=== PATIENT | female | born 1975 | race Caucasian/White ===

== ENCOUNTER → 2019-06-06 | Outpatient (CLI) | payer OTHER ==
--- NOTE | 2019-06-06 09:40 | XR ---
EXAM TYPE: LUMBAR SPINE X RAY SERIES COMPARISON: NONE HISTORY: Low back pain TECHNIQUE: 4 views are submitted. FINDINGS: Alignment is anatomic. The pedicles are intact. The transverse processes are intact. There is no s pondylolysis or spondylolisthesis. Degenerative disc disease at levels L3-S1 with facet arthropathy. Hypertrophic spurring. Surgical clips in the gallbladder fossa. Spina bifida occulta lumbosacral negrita ction. IMPRESSION: 1. Multilevel degenerative disc disease most marked findings at levels L4-5 and L5-S1.
== END | disposition home or self-care (01) ==
LOC: RADXRMAIN 09:10
PROVIDERS: ATTEND Family Medicine
DX: M51.36 Other intervertebral disc degeneration, lumbar region (principal); M51.37 Other intervertebral disc degeneration, lumbosacral region
CPT/HCPCS: 72110

== ENCOUNTER 2019-12-04 23:37 | Inpatient (IN) | payer MEDICAID, OTHER ==
[2019-12-05] MEDS ORDERED: ACTIVATED CHARCOAL 50 GM/240 ML BOTTLE PO STA (00:10)
[2019-12-05] MEDS ORDERED: SODIUM CHLORIDE 0.9% 1,000 ML IV STA (00:10)
--- NOTE | 2019-12-05 00:18 | ED ---
Overdose HPI - General Chief Complaint: Overdose Stated Complaint: overdose-tizanidine hcl Time Seen by Provider: 12/04/19 23:52 Source: patient, family Mode of arrival: ambulatory Limitations: no limitations - History of Present Illness Initial Comments: This patient is a 44-year-old woman who presents to be evaluated for an overdose. Patient states that she was feeling depressed over relationship problems. She states that she then took approximately 60 of the Zanaflex 4 mg tablets. This was nearly 5 hours ago. Patient denies coingestants. She states that she is not having any gastrointestinal symptoms. Denies chest pain, shortness of breath, palpitations. MD Complaint: intentional overdose -: hour(s) Intent: suicide attempt How Overdose Was Discovered: family/friend present at time Context: Intentional Overdose: relationship problems Treatments Prior to Arrival: none - Related Data Allergies Allergy/AdvReac Type Severity Reaction Status Date / Time No Known Allergies Allergy Verified 12/04/19 23:49 Review of Systems ROS Statement: Those systems with pertinent positive or pertinent negative responses have been documented in the HPI. ROS Other: All systems not noted in ROS Statement are negative. Constitutional: Denies: fever Respiratory: Denies: cough, dyspnea Cardiovascular: Denies: chest pain, palpitations, edema Gastrointestinal: Denies: abdominal pain, nausea, vomiting Genitourinary: Denies: dysuria Musculoskeletal: Denies: back pain Skin: Denies: rash Neurological: Denies: headache, weakness, numbness Psychiatric: Reports: depression, suicidal thoughts. Denies: auditory hallucinations, visual hallucinations, homicidal thoughts Past Medical History Past Medical History: Hyperlipidemia, Thyroid Disorder Additional Past Medical History / Comment(s): back problems History of Any Multi-Drug Resistant Organisms: None Reported Past Surgical History: Section Past Psychological History: Anxiety, Depression Smoking Status: Current every day smoker Past Alcohol Use History: None Reported Past Drug Use History: Marijuana General Exam Limitations: no limitations General appearance: alert, in no apparent distress Head exam: Present: atraumatic, normocephalic Eye exam: Present: normal appearance. Absent: scleral icterus, conjunctival injection ENT exam: Present: normal oropharynx Respiratory exam: Present: normal lung sounds bilaterally. Absent: respiratory distress, wheezes, rales, rhonchi, stridor Cardiovascular Exam: Present: regular rate, normal rhythm, normal heart sounds. Absent: systolic murmur, diastolic murmur, rubs, gallop GI/Abdominal exam: Present: soft. Absent: distended, tenderness, guarding, rebound, rigid, mass Extremities exam: Present: normal inspection, normal capillary refill. Absent: joint swelling, calf tenderness Back exam: Present: normal inspection Neurological exam: Present: alert Psychiatric exam: Present: depressed, suicidal ideation. Absent: agitated, anxious, flat affect, manic, homicidal ideation Skin exam: Present: warm, dry, intact, normal color. Absent: rash Course Vital Signs 12/04/19 12/05/19 12/05/19 23:45 00:36 04:19 Temperature 97.7 F 97.4 F L Pulse Rate 67 54 L 68 Respiratory 16 18 18 Rate Blood Pressure 120/75 108/65 117/59 O2 Sat by Pulse 99 97 97 Oximetry Medical Decision Making - Medical Decision Making Patient's 44-year-old woman with Zanaflex overdose. Patient is medically cleared, seen by EPS, and will be admitted for further psychiatric care. - Lab Data Result diagrams: 12/05/19 00:21 12/05/19 00:21 Lab Results 12/05/19 12/05/19 12/05/19 Range/Units 00:21 00:21 00:35 WBC 14.5 H (3.8-10.6) k/uL RBC 3.93 (3.80-5.40) m/uL Hgb 12.9 (11.4-16.0) gm/dL Hct 38.3 (34.0-46.0) % MCV 97.6 (80.0-100.0) fL MCH 32.9 (25.0-35.0) pg MCHC 33.7 (31.0-37.0) g/dL RDW 12.7 (11.5-15.5) % Plt Count 222 (150-450) k/uL Neutrophils % 77 % Lymphocytes % 17 % Monocytes % 3 % Eosinophils % 2 % Basophils % 0 % Neutrophils # 11.2 H (1.3-7.7) k/uL Lymphocytes # 2.4 (1.0-4.8) k/uL Monocytes # 0.5 (0-1.0) k/uL Eosinophils # 0.2 (0-0.7) k/uL Basophils # 0.0 (0-0.2) k/uL Sodium 140 (137-145) mmol/L Potassium 4.1 (3.5-5.1) mmol/L Chloride 109 H (98-107) mmol/L Carbon Dioxide 22 (22-30) mmol/L Anion Gap 9 mmol/L BUN 19 H (7-17) mg/dL Creatinine 0.98 (0.52-1.04) mg/dL Est GFR (CKD-EPI)AfAm 81 (>60 ml/min/1.73 sqM) Est GFR (CKD-EPI)NonAf 70 (>60 ml/min/1.73 sqM) Glucose 92 (74-99) mg/dL Calcium 10.1 (8.4-10.2) mg/dL Total Bilirubin 0.4 (0.2-1.3) mg/dL AST 64 H (14-36) U/L ALT 60 H (4-34) U/L Alkaline Phosphatase 77 (38-126) U/L Total Protein 7.1 (6.3-8.2) g/dL Albumin 4.4 (3.5-5.0) g/dL Urine HCG, Qual (Not Detectd) Salicylates <1.0 mg/dL Urine Opiates Screen Not Detected (NotDetected) Ur Oxycodone Screen Not Detected (NotDetected) Urine Methadone Screen Not Detected (NotDetected) Ur Propoxyphene Screen Not Detected (NotDetected) Acetaminophen <10.0 ug/mL Ur Barbiturates Screen Not Detected (NotDetected) U Tricyclic Antidepress Detected H (NotDetected) Ur Phencyclidine Scrn Not Detected (NotDetected) Ur Amphetamines Screen Not Detected (NotDetected) U Methamphetamines Scrn Not Detected (NotDetected) U Benzodiazepines Scrn Not Detected (NotDetected) Urine Cocaine Screen Not Detected (NotDetected) U Marijuana (THC) Screen Detected H (NotDetected) Serum Alcohol <10 mg/dL 12/05/19 Range/Units 00:35 WBC (3.8-10.6) k/uL RBC (3.80-5.40) m/uL Hgb (11.4-16.0) gm/dL Hct (34.0-46.0) % MCV (80.0-100.0) fL MCH (25.0-35.0) pg MCHC (31.0-37.0) g/dL RDW (11.5-15.5) % Plt Count (150-450) k/uL Neutrophils % % Lymphocytes % % Monocytes % % Eosinophils % % Basophils % % Neutrophils # (1.3-7.7) k/uL Lymphocytes # (1.0-4.8) k/uL Monocytes # (0-1.0) k/uL Eosinophils # (0-0.7) k/uL Basophils # (0-0.2) k/uL Sodium (137-145) mmol/L Potassium (3.5-5.1) mmol/L Chloride (98-107) mmol/L Carbon Dioxide (22-30) mmol/L Anion Gap mmol/L BUN (7-17) mg/dL Creatinine (0.52-1.04) mg/dL Est GFR (CKD-EPI)AfAm (>60 ml/min/1.73 sqM) Est GFR (CKD-EPI)NonAf (>60 ml/min/1.73 sqM) Glucose (74-99) mg/dL Calcium (8.4-10.2) mg/dL Total Bilirubin (0.2-1.3) mg/dL AST (14-36) U/L ALT (4-34) U/L Alkaline Phosphatase (38-126) U/L Total Protein (6.3-8.2) g/dL Albumin (3.5-5.0) g/dL Urine HCG, Qual Not Detected (Not Detectd) Salicylates mg/dL Urine Opiates Screen (NotDetected) Ur Oxycodone Screen (NotDetected) Urine Methadone Screen (NotDetected) Ur Propoxyphene Screen (NotDetected) Acetaminophen ug/mL Ur Barbiturates Screen (NotDetected) U Tricyclic Antidepress (NotDetected) Ur Phencyclidine Scrn (NotDetected) Ur Amphetamines Screen (NotDetected) U Methamphetamines Scrn (NotDetected) U Benzodiazepines Scrn (NotDetected) Urine Cocaine Screen (NotDetected) U Marijuana (THC) Screen (NotDetected) Serum Alcohol mg/dL - EKG Data -: EKG Interpreted by Me EKG shows normal: sinus rhythm, axis (Normal), intervals (Normal), QRS complexes (Normal), ST-T waves (Normal) Rate: bradycardia (Rate 41 bpm) Disposition Clinical Impression: Overdose, Mood disorder Disposition: ADMITTED IP TO THIS HOSP Condition: Fair Is patient prescribed a controlled substance at d/c from ED?: No
[2019-12-05 00:53] LABS: Basophils % (A) 0 %; Eosinophils # (A) 0.2 k/uL (0-0.7); Eosinophils % (A) 2 %; HCT 38.3 % (34.0-46.0); HGB 12.9 gm/dL (11.4-16.0); Lymphocytes # (A) 2.4 k/uL (1.0-4.8); Lymphocytes % (A) 17 %; MCH 32.9 pg (25.0-35.0); MCHC 33.7 g/dL (31.0-37.0); MCV 97.6 fL (80.0-100.0); Monocytes # (A) 0.5 k/uL (0-1.0); Monocytes % (A) 3 %; Neutrophils # (A) 11.2 k/uL (1.3-7.7); Neutrophils % (A) 77 %; Platelet Count 222 k/uL (150-450); RBC 3.93 m/uL (3.80-5.40); RDW 12.7 % (11.5-15.5); WBC 14.5 k/uL (3.8-10.6)
[2019-12-05 01:05] LABS: ALT 60 U/L (4-34); AST 64 U/L (14-36); Acetaminophen <10.0 ug/mL; African American GFR (CKD) 81 (>60 ml/min/1.73 sqM); Albumin 4.4 g/dL (3.5-5.0); Alcohol <10 mg/dL; Alkaline Phosphatase 77 U/L (38-126); Anion Gap 9 mmol/L; Blood Urea Nitrogen 19 mg/dL (7-17); Calcium 10.1 mg/dL (8.4-10.2); Carbon Dioxide 22 mmol/L (22-30); Chloride 109 mmol/L (98-107); Glucose 92 mg/dL (74-99); Non-African American GFR(CKD) 70 (>60 ml/min/1.73 sqM); Potassium 4.1 mmol/L (3.5-5.1); Salicylate <1.0 mg/dL; Sodium 140 mmol/L (137-145); Total Bilirubin 0.4 mg/dL (0.2-1.3); Total Protein 7.1 g/dL (6.3-8.2)
[2019-12-05 01:52] LABS: Amphetamine Screen,Urine Not Detected (NotDetected); Barbiturate Screen,Urine Not Detected (NotDetected); Benzodiazepines Screen,Urine Not Detected (NotDetected); Cocaine Screen,Urine Not Detected (NotDetected); Methadone Screen, Urine Not Detected (NotDetected); Opiate Screen,Urine Not Detected (NotDetected); Oxycodone Screen, Urine Not Detected (NotDetected); Phencyclidine Screen,Urine Not Detected (NotDetected); Tricyclic Antidepressant,Urine Detected (NotDetected); Urn Cannabinoid Scrn Detected (NotDetected)
[2019-12-05] MEDS ORDERED: clonazePAM 0.5 MG TAB PO PRN (06:38)
[2019-12-05] MEDS ORDERED: ACETAMINOPHEN TAB 325 MG TAB PO PRN (06:38)
[2019-12-05] MEDS ORDERED: MAGNESIUM HYDROXIDE 2,400 MG/10 ML CUP PO PRN (06:38)
[2019-12-05] MEDS ORDERED: MAG HYDROX/AL HYDROX/SIMETH 30 ML CUP PO PRN (06:38)
[2019-12-05] MEDS ORDERED: OXYBUTYNIN CHLORIDE 5 MG TAB PO PRN (06:50)
[2019-12-05] MEDS: MELOXICAM 7.5 MG TAB PO SCH (09:10)
[2019-12-05] MEDS: NICOTINE 14MG/24HR PATCH TRANSDERM SCH (09:10)
[2019-12-05] MEDS: FLUoxetine HCL 20 MG CAP PO SCH (09:11)
[2019-12-05] MEDS: ATORVASTATIN 20 MG TAB PO SCH (09:11)
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
--- NOTE | 2019-12-05 17:42 | P.MDCNMH ---
History of Present Illness Chief Complaint: Medical management, no acute complaints This is a 44-year-old female with history of depression who was admitted to mental health unit after attempted suicide with overdose on Zanaflex. Per patient and the chart patient took about 60 tablets of Zanaflex yesterday. She arrived to emergency department later that evening. She did not have any alteration in mental status or any significant cardiovascular manifestations. Her vital signs were stable. She was evaluated in the emergency department. She was treated with supportive care and eventually transferred to mental health unit. She currently has no symptoms. She is awake alert and orientated. She does not have any lightheadedness dizziness headache vision changes chest pain abdominal pain nausea vomiting diarrhea or any other discomfort. Blood work on admission was significant for AST of 66 and ALT of 60. Normal bilirubin and alk phos and normal rest of the blood work. EKG showed mild sinus tachycardia with normal QT and QRS. Patient otherwise denies any other medical problems or takes any other medications except for her psychiatric medications. She denies any history of family history of liver problems diabetes or cardiovascular disease. She used to drink but stopped drinking 3 years ago. Patient denies taking any Tylenol or any medications that can potential tick contained Tylenol. Tylenol level emergency department was negative Review of Systems Review of system was performed and is negative except mentioned in HPI Past Medical History Past Medical History: Hyperlipidemia, Thyroid Disorder Additional Past Medical History / Comment(s): back problems History of Any Multi-Drug Resistant Organisms: None Reported Past Surgical History: Section Past Psychological History: Anxiety, Depression Smoking Status: Current every day smoker Past Alcohol Use History: None Reported Past Drug Use History: Marijuana Medications and Allergies Home Medications Medication Instructions Recorded Confirmed Type Acetaminophen Tab [Tylenol Tab] 1,000 mg PO Q12H PRN 12/05/19 12/05/19 History Atorvastatin [Lipitor] 20 mg PO DAILY 12/05/19 12/05/19 History Cyclobenzaprine HCl 10 mg PO BID 12/05/19 12/05/19 History Ergocalciferol [Vitamin D2] 50,000 unit PO Q7D 12/05/19 12/05/19 History FLUoxetine HCL [PROzac] 20 mg PO DAILY 12/05/19 12/05/19 History Levothyroxine Sodium [Synthroid] 88 mcg PO DAILY 12/05/19 12/05/19 History Meloxicam 15 mg PO DAILY 12/05/19 12/05/19 History Nicotine 21Mg/24Hr Patch [Habitrol] 1 patch TRANSDERM DAILY 12/05/19 12/05/19 History Oxybutynin Chloride [Ditropan] 10 mg PO BID 12/05/19 12/05/19 History QUEtiapine [SEROquel] 100 mg PO HS 12/05/19 12/05/19 History clonazePAM [KlonoPIN] 0.5 mg PO BID PRN 12/05/19 12/05/19 History tiZANidine HCL [Zanaflex] 8 mg PO TID 12/05/19 12/05/19 History Allergies Allergy/AdvReac Type Severity Reaction Status Date / Time No Known Allergies Allergy Verified 12/05/19 07:39 Physical Exam Vitals: Vital Signs Temp Pulse Pulse Resp BP BP Pulse Ox 12/05/19 07:20 97.9 F 68 16 128/72 98 12/05/19 07:06 79 18 125/78 99 12/05/19 06:31 97.9 F 68 16 128/72 98 12/05/19 04:19 97.4 F L 68 18 117/59 97 12/05/19 00:36 54 L 18 108/65 97 12/04/19 23:45 97.7 F 67 16 120/75 99 Intake and Output 12/05/19 12/05/19 12/05/19 06:59 14:59 22:59 Other: Weight 77.111 kg 81.391 kg Vital Signs: I have reviewed the vital signs. GENERAL: Well-nourished, Well-developed , no apparent distress, cooperative Eyes: PERRL, extraoculry movements intact, clear conjunctiva Head: : Atraumatic external nose and ears, oropharyngeal mucosa is moist without lesions or exudates Neck: Symmetric, trachea midline, No thyromegaly, no masses or neck vain pulsation, no neck rigidity CVS: +S1/S2, No murmurs or gallops. Peripheral pulses 2+ and equal in all extremities. RESP: Unlabored respiratory effort. Clear to auscultation bilaterally. Abdomen: Bowel sounds present in all 4 quadrants, Soft to palpation, Nontender/Nondistended, No hepatosplenomegaly, no hernias or masses, no CVA tnderness Musculoskeletal: Extremities w/o deformity, No cyanosis or clubbing, no joint swelling Skin: Warm, Dry. 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, motor strenght 5/5 i upper and lower extremities, no clonus, patellar DTRs 2+ and sympetrical Psych: Awake, Alert, & Oriented (AAO) x3 Appropriate mood and affect Cranial Nerve Examination - Cranial Nerves Cranial Nerve I- Olfactory: Intact Cranial Nerve II- Optic: Intact Cranial Nerve III- Oculomotor: Intact Cranial Nerve IV- Trochlear: Intact Cranial Nerve V- Trigeminal: Intact Cranial Nerve - Abducens: Intact Cranial Nerve VII- Facial: Intact Cranial Nerve VIII- Auditory: Intact Cranial Nerve IX- Glossopharyngeal: Intact Cranial Nerve X- Vagus: Intact Cranial Nerve XI- Accessory: Intact Cranial Nerve XII- Hypoglossal: Intact Results CBC & Chem 7: 12/05/19 00:21 12/05/19 00:21 Labs: Abnormal Lab Results - Last 24 Hours (Table) 12/05/19 12/05/19 12/05/19 Range/Units 00:21 00:21 00:35 WBC 14.5 H (3.8-10.6) k/uL Neutrophils # 11.2 H (1.3-7.7) k/uL Chloride 109 H (98-107) mmol/L BUN 19 H (7-17) mg/dL AST 64 H (14-36) U/L ALT 60 H (4-34) U/L U Tricyclic Antidepress Detected H (NotDetected) U Marijuana (THC) Screen Detected H (NotDetected) Assessment and Plan Plan: 44-year-old female with SoloSite attempt with Zanaflex and major depression being evaluated by our service for medical management. She does not have any active symptoms. Regarding her elevated liver enzymes we will order repeat follow-up of CMP in the morning. Check viral hepatitis studies and ultrasound of the liver. Tylen ol level was undetectable in emergency department. Patient denies any Tylenol- containing products medications at home or taking any of those. Zanaflex can cause hepatotoxicity which is typically mild but we will need to monitor this and a sure that liver enzymes are stable.
[2019-12-05] MEDS ORDERED: QUEtiapine 100 MG TAB PO SCH (21:00)
[2019-12-05] MEDS: QUEtiapine 100 MG TAB PO SCH (21:17)
[2019-12-06 07:26] LABS: Albumin 4.5 g/dL (3.5-5.0); Bilirubin, Delta 0.3 mg/dL (0.0-0.2); Bilirubin,Unconjugated 0.2 mg/dL (0.0-1.1); Calcium 9.8 mg/dL (8.4-10.2); Potassium 4.2 mmol/L (3.5-5.1); Total Bilirubin 0.5 mg/dL (0.2-1.3); Total Protein 7.3 g/dL (6.3-8.2)
[2019-12-06] MEDS: MELOXICAM 7.5 MG TAB PO SCH (08:50)
[2019-12-06] MEDS: ATORVASTATIN 20 MG TAB PO SCH (08:50)
[2019-12-06] MEDS: NICOTINE 14MG/24HR PATCH TRANSDERM SCH (08:50)
[2019-12-06] MEDS: FLUoxetine HCL 20 MG CAP PO SCH (08:50)
[2019-12-06] MEDS ORDERED: LEVOTHYROXINE 88 MCG TAB PO SCH (09:00)
[2019-12-06 09:23] LABS: T4, Free (Free Thyroxine) 0.77 ng/dL (0.78-2.19)
[2019-12-06] MEDS: clonazePAM 0.5 MG TAB PO PRN (09:35)
[2019-12-06 12:03] LABS: Hepatitis B Core IgM Non-Reactive (Non-Reactive); Hepatitis B Surface AB- Quant 385.4 mIU/mL; Hepatitis B Surface Antibody Reactive (Non-Reactive); Hepatitis B Surface Antigen Non-Reactive (Non-Reactive); Hepatitis C IgG Antibody Non-Reactive (Non-Reactive)
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
[2019-12-06 12:52] LABS: Hemoglobin A1C 5.2 % (4.0-6.0)
--- NOTE | 2019-12-06 15:09 | P.PN ---
Subjective Lab results were reviewed. No changes in patient's clinical status. Objective - Vital Signs Vital signs: Vital Signs Temp 98.0 F 12/06/19 06:07 Pulse 64 12/06/19 06:07 Resp 14 12/06/19 06:07 BP 117/54 12/06/19 06:07 Pulse Ox 98 12/05/19 07:20 Intake & Output 12/05/19 12/06/19 12/06/19 18:59 06:59 18:59 Weight 81.391 kg - Labs CBC & Chem 7: 12/05/19 00:21 12/06/19 06:51 Labs: Abnormal Lab Results - Last 24 Hours (Table) 12/06/19 Range/Units 06:51 Chloride 112 H (98-107) mmol/L Delta Bilirubin 0.3 H (0.0-0.2) mg/dL AST 53 H (14-36) U/L ALT 56 H (4-34) U/L Triglycerides 418 H (<150) mg/dL Cholesterol 248 H (<200) mg/dL TSH 18.500 H (0.465-4.680) mIU/L Free T4 0.77 L (0.78-2.19) ng/dL Assessment and Plan Assessment: 1. Elevated liver enzymes normal bilirubin and ALP enzymes trending down viral serology pending 2. Hypothyroidism TSH 18 appears euthyroid clinically pt states to be adherent to Levothyroxine and takes it on empty stomach in am avay from any other meds. She does not take any OTC. Pt has no CVS dieases and based on her body weight should be on higer dose. Will increase to 112 mcg/day counseled to take in am on empty stomach, 1-2 hrs before breakfast or other medications close follow up needed with repeat TSH in 4-6 weeks 3. hypertrygliceridemia with hypercholoesterolemia probable component of Hypothyroidism rule out other causes she has been on Atorvastatin may continue that diet, exercise, alcohol avoidance advised check A1c repeat labs in 6 weeks may add fibrate if needed if no improvemnt in few weeks, but would like to get control over her hypothyroidsm first
[2019-12-06] MEDS: QUEtiapine 100 MG TAB PO SCH (20:10)
[2019-12-07] MEDS: LEVOTHYROXINE 112 MCG TAB PO SCH (05:35)
[2019-12-07] MEDS: ATORVASTATIN 20 MG TAB PO SCH (09:08)
[2019-12-07] MEDS: NICOTINE 14MG/24HR PATCH TRANSDERM SCH (09:08)
[2019-12-07] MEDS: MELOXICAM 7.5 MG TAB PO SCH (09:08)
[2019-12-07] MEDS: FLUoxetine HCL 20 MG CAP PO SCH (09:09)
[2019-12-07] MEDS: clonazePAM 0.5 MG TAB PO PRN (09:10)
[2019-12-07 09:21] LABS: Albumin 4.8 g/dL (3.5-5.0); Calcium 9.9 mg/dL (8.4-10.2); Potassium 4.6 mmol/L (3.5-5.1); Total Bilirubin 0.6 mg/dL (0.2-1.3); Total Protein 7.5 g/dL (6.3-8.2)
--- NOTE | 2019-12-07 12:13 | P.PN ---
Subjective Progress Note Date: 12/07/19 The patient seen in the chart was reviewed. The case was discussed with the staff and team meeting. The patient reports feeling a little better today. She complained of poor sleep and last night but attributes it to the disturbance on the unit. The patient reports fair appetite. She reports improvement in crying spells and denies any panic attacks. The patient denies any nightmares. The patient reports that she has been communicating with her boyfriend and things have been better between the 2 of them. She is looking forward to the family meeting later today this afternoon. The patient denies any auditory or visual hallucinations. She denies any suicidal or homicidal ideations at this time. The patient has been tolerating medications without any side effects. Objective - Vital Signs Vital signs: Vital Signs Temp 98.7 F 12/07/19 06:00 Pulse 72 12/07/19 06:00 Resp 18 12/07/19 06:00 BP 124/55 12/07/19 06:00 Pulse Ox 98 12/05/19 07:20 - Exam Objective: Vitals has been reviewed. Mental status examination; Appearance: The patient appears stated age, adequately groomed and dressed, no specific features. Gait/posture: Normal gait, Normal arm swinging: No abnormal movements. Attitude and behavior: engaged, cooperative, eye contact. Motor activity: Normal psychomotor activity Speech: Normal rate, tone. Mood: Anxious, depressed. Affect: Constricted Thought form: goal-directed, linear, coherent. Thought content: Non-delusional, denies suicidal thoughts, but reports feeling hopeless, denies homicidal thoughts, denies intentions or plans. Perception: Denies any auditory or visual hallucinations Orientation: Patient patient was fully oriented to time place person and situation. Insight: Patient has fair insight about his psychiatric disorder. Judgment: Patient has fair judgment about his psychiatric treatment. - Labs CBC & Chem 7: 12/05/19 00:21 12/07/19 08:08 Labs: Abnormal Lab Results - Last 24 Hours (Table) 12/06/19 12/07/19 Range/Units 06:51 08:08 Chloride 111 H (98-107) mmol/L Carbon Dioxide 20 L (22-30) mmol/L Glucose 102 H (74-99) mg/dL AST 48 H (14-36) U/L ALT 54 H (4-34) U/L Hep Bs Antibody Reactive H (Non-Reactive) Assessment and Plan Assessment: IMPRESSIONS: Major Depressive disorder Cannabis abuse disorder Plan: PLAN: . Admit to the mental health unit. Continue on suicidal precautions 1:1 support and psychotherapy Continue Prozac 20 mg PO qd. Continue Seroquel 100 mg PO qhs and 25 mg PO tid PRN. Milieu therapy including PT, OT and GT. Adjust medications and monitor closely for the patient's symptoms getting worse and /or possible side effects on medications.
--- NOTE | 2019-12-07 17:44 | P.PN ---
Progress Note - Text Viral hepatitis serology reviewed. Most likely indicative of vaccination status. We have HBeAg and anti-HBe AB currently pending for full confirmation. Initial results reviewed with the patient. Liver enzymes continued to trend down. Avoid hepatotoxic medications. Recheck CMP a few days.
[2019-12-07] MEDS: QUEtiapine 100 MG TAB PO SCH (20:50)
[2019-12-08] MEDS: LEVOTHYROXINE 112 MCG TAB PO SCH (06:04)
[2019-12-08] MEDS: NICOTINE 14MG/24HR PATCH TRANSDERM SCH (09:04)
[2019-12-08] MEDS: ATORVASTATIN 20 MG TAB PO SCH (09:04)
[2019-12-08] MEDS: FLUoxetine HCL 20 MG CAP PO SCH (09:04)
[2019-12-08] MEDS: MELOXICAM 7.5 MG TAB PO SCH (09:05)
[2019-12-08] MEDS: clonazePAM 0.5 MG TAB PO PRN (09:07)
--- NOTE | 2019-12-08 09:55 | US ---
EXAMINATION TYPE: US liver DATE OF EXAM: 12/08/2019 COMPARISON: NONE CLINICAL HISTORY: elevated liver enzymes . Patient took 60 muscle relaxers and is in [facility]HU. EXAM MEASUREMENTS: Liver Length: 16.6 cm Gallbladder Wall: Surgically absent cm CBD: 0.4 cm Right Kidney: 10.1 x 4.6 x 3.8 cm Pancreas: No obvious masses Limited by bowel gas. Liver: Increased attenuation, heterogeneous texture overall Gallbladder: Surgically absent Evidence for sonographic Boyd's sign: No CBD: wnl Right Kidney: No hydronephrosis or masses seen IMPRESSION: 1. Increased echo pattern to the liver is nonspecific can be seen with hepatic steatosis, hepatitis o r diffuse hepatocellular disease correlate clinically. 2. Postcholecystectomy. 3. Markedly Limited assessment pancreas due to overlying bowel gas.
--- NOTE | 2019-12-08 10:48 | P.PN ---
Subjective Progress Note Date: 12/08/19 The patient seen in the chart was reviewed. The case was discussed with the staff and the team meeting. The patient continues to report feeling depressed and anxious. She remained focused on feeling guilty about cheating on her boyfriend. The patient reports fair sleep and appetite. She denies any crying spells or panic attacks. The patient denies any auditory or visual hallucinations. The patient denies any active suicidal or homicidal ideations at this time. The patient has been cooperative and compliant with treatment and denies any side effects on the medications but reports muscle contractions and lower extremity. Objective - Vital Signs Vital signs: Vital Signs Temp 98.2 F 12/08/19 06:07 Pulse 80 12/08/19 06:07 Resp 14 12/08/19 06:07 BP 108/52 12/08/19 06:07 Pulse Ox 98 12/05/19 07:20 - Exam Objective: Vitals has been reviewed. Mental status examination; Appearance: The patient appears stated age, adequately groomed and dressed, no specific features. Gait/posture: Normal gait, Normal arm swinging: No abnormal movements. Attitude and behavior: engaged, cooperative, eye contact. Motor activity: Normal psychomotor activity Speech: Normal rate, tone. Mood: Anxious, depressed. Affect: Constricted Thought form: goal-directed, linear, coherent. Thought content: Non-delusional, denies suicidal thoughts, but reports feeling hopeless, denies homicidal thoughts, denies intentions or plans. Perception: Denies any auditory or visual hallucinations Orientation: Patient patient was fully oriented to time place person and situation. Insight: Patient has fair insight about his psychiatric disorder. Judgment: Patient has fair judgment about his psychiatric treatment. - Labs CBC & Chem 7: 12/05/19 00:21 12/07/19 08:08 Assessment and Plan Assessment: IMPRESSIONS: Major Depressive disorder Cannabis abuse disorder Plan: PLAN: . Admit to the mental health unit. Continue on suicidal precautions 1:1 support and psychotherapy. Discussed side effects of the medications including possible dystonia from Seroquel. Discussed treatment options. Continue Prozac 20 mg PO qd. Continue Seroquel 100 mg PO qhs and 25 mg PO tid PRN. Start Cogentin 0.5 mg by mouth daily at bedtime. Discontinue Klonopin. Milieu therapy including PT, OT and GT. Adjust medications and monitor closely for the patient's symptoms getting worse and /or possible side effects on medications.
[2019-12-08 13:59] LABS: Hepatitis BE Antibody NEG (Negative)
[2019-12-08 14:00] LABS: Hepatitis BE Antigen NEG (Negative)
[2019-12-08] MEDS: QUEtiapine 25 MG TAB PO PRN (15:32)
[2019-12-08] MEDS: BENZTROPINE MESYLATE 0.5 MG TAB PO SCH (22:05)
[2019-12-08] MEDS: QUEtiapine 100 MG TAB PO SCH (22:05)
[2019-12-09] MEDS: LEVOTHYROXINE 112 MCG TAB PO SCH (06:45)
[2019-12-09] MEDS ORDERED: ERGOCALCIFEROL 50,000 UNIT CAP PO SCH (09:00)
[2019-12-09] MEDS: NICOTINE 14MG/24HR PATCH TRANSDERM SCH (09:29)
[2019-12-09] MEDS: ATORVASTATIN 20 MG TAB PO SCH (09:29)
[2019-12-09] MEDS: FLUoxetine HCL 20 MG CAP PO SCH (09:30)
[2019-12-09] MEDS: QUEtiapine 25 MG TAB PO PRN (09:31)
[2019-12-09] MEDS: MELOXICAM 7.5 MG TAB PO SCH (09:31)
--- NOTE | 2019-12-09 15:58 | P.PN ---
Progress Note - Text Progress Note Date: 12/09/19 Interval history: Patient is seen in [facility] today. She reports that her mood overall is doing better. She does describe her level of anxiety fluctuating, relays her Klonopin was discontinued yesterday and doesn't feel like the Seroquel when necessary works. She does describe that her mood is doing better, relay she had a support meeting with her boyfriend on . Mental status exam: She is alert and cooperative with the interview. Her speech is fluent, not rapid or pressured. Her thought processes are organized. Her mood is improved. She denies any current thoughts of self-harm. She does not show any agitation. She does not verbalize any thoughts of harm to others. Plan: Patient will be maintained on current psychotropic medication regimen. Continue to monitor her mood and level of anxiety. Continue to monitor her ongoing response to treatment and for any medication side effects.
[2019-12-09] MEDS: BENZTROPINE MESYLATE 0.5 MG TAB PO SCH (21:56)
[2019-12-09] MEDS: QUEtiapine 100 MG TAB PO SCH (21:56)
[2019-12-10] MEDS: LEVOTHYROXINE 112 MCG TAB PO SCH (06:26)
[2019-12-10] MEDS: ATORVASTATIN 20 MG TAB PO SCH (10:11)
[2019-12-10] MEDS: QUEtiapine 25 MG TAB PO PRN (10:11)
[2019-12-10] MEDS: FLUoxetine HCL 20 MG CAP PO SCH (10:11)
[2019-12-10] MEDS: NICOTINE 14MG/24HR PATCH TRANSDERM SCH (10:11)
[2019-12-10] MEDS: MELOXICAM 7.5 MG TAB PO SCH (10:12)
--- NOTE | 2019-12-10 15:03 | P.PN ---
Progress Note - Text Progress Note Date: 12/10/19 Interval history: [facility] [place] [facility]. She reports that the Cogentin did seem to give her some benefit at night but she wonders about an increased dose we talked about trialing at a twice a day dosing. We did discuss her liver ultrasound and discussed that we will have medical follow-up to further discuss results with her. She describes her mood overall is doing better. She doesn't feel like the Seroquel gives her benefit for anxiety. Mental status exam: She is alert and cooperative with the interview. Her speech is fluent, not rapid or pressured. Thought processes are organized. She describes her mood overall is doing better. She denies any thoughts of harm to self or others. She denies any hallucinations. She is not displaying any agitation. Plan: Patient will be maintained on current psychotropic medication regimen. Continue to monitor for any medication side effects and monitor her ongoing response to treatment. Will have medical follow-up regarding her liver ultrasound.
[2019-12-10] MEDS: BENZTROPINE MESYLATE 0.5 MG TAB PO SCH (22:01)
[2019-12-10] MEDS: QUEtiapine 100 MG TAB PO SCH (22:01)
[2019-12-11] MEDS: LEVOTHYROXINE 112 MCG TAB PO SCH (06:22)
[2019-12-11] MEDS: NICOTINE 14MG/24HR PATCH TRANSDERM SCH (09:31)
[2019-12-11] MEDS: MELOXICAM 7.5 MG TAB PO SCH (09:31)
[2019-12-11] MEDS: ATORVASTATIN 20 MG TAB PO SCH (09:31)
[2019-12-11] MEDS: FLUoxetine HCL 20 MG CAP PO SCH (09:32)
[2019-12-11] MEDS: BENZTROPINE MESYLATE 0.5 MG TAB PO SCH ×2 (09:32→22:49)
--- NOTE | 2019-12-11 13:18 | P.PN ---
Subjective Progress Note Date: 12/11/19 The patient seen in the chart was reviewed. The case was discussed with the staff and the team meeting. The patient reports feeling better today but reports feeling more anxious. The patient reports fair sleep and appetite. She denies any crying spells or panic attacks. The patient denies any auditory or visual hallucinations. The patient denies any active suicidal or homicidal ideations at this time. The patient has been cooperative and compliant with treatment and denies any side effects on the medications but reports muscle contractions and lower extremity. Objective - Vital Signs Vital signs: Vital Signs Temp 97.8 F 12/11/19 07:07 Pulse 70 12/11/19 07:07 Resp 17 12/11/19 07:07 BP 101/55 12/11/19 07:07 Pulse Ox 99 12/11/19 07:07 Intake & Output 12/10/19 12/11/19 12/11/19 18:59 06:59 18:59 Weight 79.5 kg - Exam Objective: Vitals has been reviewed. Mental status examination; Appearance: The patient appears stated age, adequately groomed and dressed, no specific features. Gait/posture: Normal gait, Normal arm swinging: No abnormal movements. Attitude and behavior: engaged, cooperative, eye contact. Motor activity: Normal psychomotor activity Speech: Normal rate, tone. Mood: Anxious, depressed. Affect: Constricted Thought form: goal-directed, linear, coherent. Thought content: Non-delusional, denies suicidal thoughts, but reports feeling hopeless, denies homicidal thoughts, denies intentions or plans. Perception: Denies any auditory or visual hallucinations Orientation: Patient patient was fully oriented to time place person and si tuation. Insight: Patient has fair insight about his psychiatric disorder. Judgment: Patient has fair judgment about his psychiatric treatment. - Labs CBC & Chem 7: 12/05/19 00:21 12/07/19 08:08 Assessment and Plan Assessment: IMPRESSIONS: Major Depressive disorder Cannabis abuse disorder Plan: PLAN: . Admit to the mental health unit. Continue on suicidal precautions 1:1 support and psychotherapy. Discussed side effects of the medications including possible dystonia from Seroquel. Discussed treatment options. Continue Prozac 20 mg PO qd. Continue Seroquel 100 mg PO qhs and 25 mg POmg by mouth daily at bedtime. Continue Cogentin 0.5 mg bid PRN.. Milieu therapy including PT, OT and GT. Adjust medications and monitor closely for the patient's symptoms getting worse and /or possible side effects on medications.
[2019-12-11] MEDS: QUEtiapine 25 MG TAB PO PRN (13:48)
[2019-12-11] MEDS: QUEtiapine 100 MG TAB PO SCH (22:49)
[2019-12-12] MEDS: LEVOTHYROXINE 112 MCG TAB PO SCH (06:39)
[2019-12-12] MEDS: NICOTINE 14MG/24HR PATCH TRANSDERM SCH (09:13)
[2019-12-12] MEDS: FLUoxetine HCL 20 MG CAP PO SCH (09:14)
[2019-12-12] MEDS: ATORVASTATIN 20 MG TAB PO SCH (09:14)
[2019-12-12] MEDS: MELOXICAM 7.5 MG TAB PO SCH (09:14)
[2019-12-12] MEDS: BENZTROPINE MESYLATE 0.5 MG TAB PO SCH ×2 (09:14→21:21)
--- NOTE | 2019-12-12 12:00 | P.PN ---
Subjective Progress Note Date: 12/12/19 The patient seen in the chart was reviewed. The case was discussed with the staff and the team meeting. The patient continues to report feeling anxious all the time. She is requesting Klonopin for the anxiety. The patient was ordered Seroquel but thinks that it does not work. The patient denies any auditory or visual hallucinations. She denies any active suicidal or homicidal ideations at this time. The patient has been cooperative and compliant with treatment and denies any side effects on the medications but reports muscle contractions and lower extremity. Objective - Vital Signs Vital signs: Vital Signs Temp 97.8 F 12/12/19 06:50 Pulse 77 12/12/19 06:50 Resp 15 12/12/19 06:50 BP 113/60 12/12/19 06:50 Pulse Ox 97 12/12/19 06:50 - Exam Objective: Vitals has been reviewed. Mental status examination; Appearance: The patient appears stated age, adequately groomed and dressed, no specific features. Gait/posture: Normal gait, Normal arm swinging: No abnormal movements. Attitude and behavior: engaged, cooperative, eye contact. Motor activity: Normal psychomotor activity Speech: Normal rate, tone. Mood: Anxious, depressed. Affect: Constricted Thought form: goal-directed, linear, coherent. Thought content: Non-delusional, denies suicidal thoughts, but reports feeling hopeless, denies homicidal thoughts, denies intentions or plans. Perception: Denies any auditory or visual hallucinations Orientation: Patient patient was fully oriented to time place person and situation. Insight: Patient has fair insight about his psychiatric disorder. Judgment: Patient has fair judgment about his psychiatric treatment. - Labs CBC & Chem 7: 12/05/19 00:21 12/07/19 08:08 Assessment and Plan Assessment: IMPRESSIONS: Major Depressive disorder Cannabis abuse disorder Plan: PLAN: . Admit to the mental health unit. Continue on suicidal precautions 1:1 support and psychotherapy. Discussed side effects of the medications including possible dystonia from Seroquel. Discussed treatment options. Continue Prozac 20 mg PO qd. Increase Seroquel 100 mg PO qhs and 25 mg POmg by mouth tid PRN. Start Neurontin 100 mg PO tid. Continue Cogentin 0.5 mg bid PRN.. Milieu therapy including PT, OT and GT. Adjust medications and monitor closely for the patient's symptoms getting worse and /or possible side effects on medications.
[2019-12-12] MEDS: GABAPENTIN 400 MG CAP PO SCH ×3 (14:40→21:21)
[2019-12-12] MEDS ORDERED: GABAPENTIN 100 MG CAP PO SCH (16:00)
[2019-12-12] MEDS: QUEtiapine 100 MG TAB PO SCH (21:21)
[2019-12-13] MEDS: LEVOTHYROXINE 112 MCG TAB PO SCH (06:20)
[2019-12-13 06:53] VITALS: BP 111/52; PULSE 79; RESP 18; TEMP 98.1
[2019-12-13] MEDS: NICOTINE 14MG/24HR PATCH TRANSDERM SCH (09:11)
[2019-12-13] MEDS: FLUoxetine HCL 20 MG CAP PO SCH (09:11)
[2019-12-13] MEDS: BENZTROPINE MESYLATE 0.5 MG TAB PO SCH (09:11)
[2019-12-13] MEDS: ATORVASTATIN 20 MG TAB PO SCH (09:11)
[2019-12-13] MEDS: GABAPENTIN 400 MG CAP PO SCH ×2 (09:11→13:04)
[2019-12-13] MEDS: MELOXICAM 7.5 MG TAB PO SCH (09:11)
--- NOTE | 2019-12-13 11:41 | P.PN ---
Subjective Progress Note Date: 12/13/19 Discharge Note: Patient was seen and chart was reviewed. Case discussed with staff. The patient reports doing better and denies any new problems at this time. [She] admits to fair energy and fair appetite. [She] claims that she slept better last night and does not remember having a nightmare. At this time patient denies any suicidal or homical ideations, intent or plan. Patient denies any auditory, visual hallucinations and denies any paranoia or delusions. Patient denies any side effects from the medications and has been compliant with meds. Objective - Vital Signs Vital signs: Vital Signs Temp 98.1 F 12/13/19 06:52 Pulse 79 12/13/19 06:52 Resp 18 12/13/19 06:52 BP 111/52 12/13/19 06:52 Pulse Ox 97 12/12/19 06:50 - Exam Mental Status Exam: General Appearance: Patient appears to be stated age is alert, directable. fair hygiene and grooming. Patient has improving eye contact. Behavior: Patient is seated without any agitated behavior. Appears to be less anxious Speech: Patient's speech is fluent and nonpressured. soft tone. Mood/Affect: Patient reports their mood/anxiety is mildly improving, affect is congruent Suicidality/Homicidality: Patient denies having any suicidal or homicidal ideation intent or plan. Perceptions: Patient denies any auditory or visual hallucinations. Though content/process: There is no evidence of any delusional thought content and thought process is linear and goal-directed. Memory and concentration: AOX3, grossly intact for the purposes of this session. Judgment and insight: mildly improving. - Labs CBC & Chem 7: 12/05/19 00:21 12/07/19 08:08 Assessment and Plan Assessment: IMPRESSIONS: Major Depressive disorder Cannabis abuse disorder Plan: Plan: -Patient continues to meet criteria for inpatient psychiatric admission for symptom stabilization and safety. Patient has signed adult voluntary form and medication consent and was placed in patient's chart. -Medications: Continue Neurontin 400 mg PO qid. Continue Prozac 20 mg PO qd Continue Seroquel 100 mg PO qhs. Continue Seroquel 25 mg PO tid PRN. -NRT -not needed as patient does not smoke -Discharge home today to follow-up as an outpatient.
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
== END 2019-12-13 13:21 | disposition home or self-care (01) | DRG 881 ==
LOC: EC 23:37 → 3MHU 12-05 06:30
PROVIDERS: ADMIT Psychiatry & Neurology Psychiatry; ATTEND Psychiatry & Neurology Psychiatry
DX: F32.9 Major depressive disorder, single episode, unspecified (principal); T42.8X2A Poisoning by antiparkinsonism drugs and other central muscle-tone depressants, intentional self-harm, initial encounter; E03.9 Hypothyroidism, unspecified; E78.5 Hyperlipidemia, unspecified; F12.19 Cannabis abuse with unspecified cannabis-induced disorder; F17.210 Nicotine dependence, cigarettes, uncomplicated; F41.0 Panic disorder [episodic paroxysmal anxiety]; Z91.410 Personal history of adult physical and sexual abuse; Z81.1 Family history of alcohol abuse and dependence; Z63.0 Problems in relationship with spouse or partner; R94.5 Abnormal results of liver function studies; Z79.899 Other long term (current) drug therapy
CPT/HCPCS: 36415; 76705; 80053; 80061; 80076; 80306; 80320; 80329; 81025; 82075; 83036; 83520; 84439; 84443; 85025; 86704; 86705; 86706; 86707; 86803; 87340; 87350; 93005; 96360; 99285

== ENCOUNTER 2024-07-25 18:58 | Emergency (ER) | payer OTHER ==
--- NOTE | 2024-07-25 19:16 | ED ---
General Adult HPI - General Stated complaint: [facility] drug test Time Seen by Provider: 07/25/24 19:15 Source: patient, RN notes reviewed - History of Present Illness Initial comments: 49-year-old female presents emergency department chief complaint for encounter for drug test. Patient states that she was "caught at work smoking her marijuana vape pen ". Patient was informed by her employer to report to the emergency department to leave a 10 panel drug test. No other acute complaints at this time. - Related Data Home Medications Medication Instructions Recorded Confirmed Atorvastatin [Lipitor] 20 mg PO DAILY 12/05/19 12/05/19 Cyclobenzaprine HCl 10 mg PO BID 12/05/19 12/05/19 Ergocalciferol [Vitamin D2] 50,000 unit PO Q7D 12/05/19 12/05/19 Levothyroxine Sodium [Synthroid] 88 mcg PO DAILY 12/05/19 12/05/19 QUEtiapine [SEROquel] 100 mg PO HS 12/05/19 12/05/19 oxyBUTYnin chloride [Ditropan] 10 mg PO BID 12/05/19 12/05/19 Previous Rx's Medication Instructions Recorded Benztropine Mesylate [Cogentin] 0.5 mg PO BID #60 tab 12/11/19 FLUoxetine HCL [PROzac] 20 mg PO DAILY #30 cap 12/11/19 Nicotine 14Mg/24Hr Patch [Habitrol] 1 patch TRANSDERM DAILY #14 patch 12/11/19 QUEtiapine [SEROquel] 25 mg PO TID PRN #90 tab 12/11/19 QUEtiapine [SEROquel] 100 mg PO HS #30 tab 12/11/19 Gabapentin [Neurontin] 400 mg PO QID 30 Days #120 cap 12/13/19 Allergies Allergy/AdvReac Type Severity Reaction Status Date / Time No Known Allergies Allergy Verified 07/25/24 19:18 Review of Systems ROS Statement: Those systems with pertinent positive or pertinent negative responses have been documented in the HPI. ROS Other: All systems not noted in ROS Statement are negative. Past Medical History Past Medical History: Hyperlipidemia, Thyroid Disorder Additional Past Medical History / Comment(s): back problems History of Any Multi-Drug Resistant Organisms: None Reported Past Surgical History: Section Past Psychological History: Anxiety, Depression Past Alcohol Use History: None Reported Past Drug Use History: Marijuana General Exam General appearance: alert, in no apparent distress Head exam: Present: atraumatic, normocephalic, normal inspection Eye exam: Present: normal appearance, PERRL, EOMI. Absent: scleral icterus, conjunctival injection, periorbital swelling ENT exam: Present: normal exam, mucous membranes moist Neck exam: Present: normal inspection. Absent: tenderness, meningismus, lymphadenopathy Respiratory exam: Present: normal lung sounds bilaterally, wheezes. Absent: respiratory distress, rales, rhonchi, stridor Cardiovascular Exam: Present: regular rate, normal rhythm, normal heart sounds. Absent: systolic murmur, diastolic murmur, rubs, gallop, clicks GI/Abdominal exam: Present: soft, normal bowel sounds. Absent: distended, tenderness, guarding, rebound, rigid Psychiatric exam: Present: normal affect, normal mood Skin exam: Present: warm, dry, intact, normal color. Absent: rash Course Vital Signs 07/25/24 19:16 Temperature 97.8 F Pulse Rate 74 Respiratory 18 Rate Blood Pressure 126/69 O2 Sat by Pulse 98 Oximetry Medical Decision Making - Medical Decision Making Was pt. sent in by a medical professional or institution (, PA, INTERNATIONAL FREIGHT FORWARDER, urgent care, hospital, or detention...) When possible be specific @ -Patient was sent in by her employer for a drug screen. Did you speak to anyone other than the patient for history (EMS, parent, family, police, friend...)? What history was obtained from this source @ -No Did you review nursing and triage notes (agree or disagree)? Why? @ -I reviewed and agree with nursing and triage notes Were old charts reviewed (outside hosp., previous admission, EMS record, old EKG, old radiological studies, urgent care reports/EKG's, detention records)? Report findings @ -No old charts were reviewed Differential Diagnosis (chest pain, altered mental status, abdominal pain women, abdominal pain men, vaginal bleeding, weakness, fever, dyspnea, syncope, headache, dizziness, GI bleed, back pain, seizure, CVA, palpatations, mental health, musculoskeletal)? @ -encounter for work-related drug screen EKG interpreted by me (3pts min.). @ -None X-rays interpreted by me (1pt min.). @ -None done CT interpreted by me (1pt min.). @ -None done U/S interpreted by me (1pt. min.). @ -None done What testing was considered but not performed or refused? (CT, X-rays, U/S, labs)? Why? @ -None What meds were considered but not given or refused? Why? @ -None Did you discuss the management of the patient with other professionals (professionals i.e. Dr., PA, INTERNATIONAL FREIGHT FORWARDER, lab, RT, psych nurse, dialysis social worker, paper cap machine operator, teacher, flight communications officer, case sealer)? Give summary @ -No Was smoking cessation discussed for >3mins.? @ -No Was critical care preformed (if so, how long)? @ -No Were there social determinants of health that impacted care today? How? (Homelessness, low income, unemployed, alcoholism, drug addiction, transportation, low edu. Level, literacy, decrease access to med. care, long-term, rehab)? @ -No Was there de-escalation of care discussed even if they declined (Discuss DNR or withdrawal of care, Hospice)? DNR status @ -No What co-morbidities impacted this encounter? (DM, HTN, Smoking, COPD, CAD, Cancer, CVA, ARF, Chemo, Hep., AIDS, mental health diagnosis, sleep apnea, morbid obesity)? @ -None Was patient admitted / discharged? Hospital course, mention meds given and route, prescriptions, significant lab abnormalities, going to OR and other pertinent info. @ -Discharge. 49-year-old female with encounter for a urine drug screen as she was found using illicit drugs while at work. No acute complaints. Patient is discharged in stable condition. Discussed with Dr. Bailey Undiagnosed new problem with uncertain prognosis? @ -No Drug Therapy requiring intensive monitoring for toxicity (Heparin, Nitro, Insulin, Cardizem)? @ -No Were any procedures done? @ -No Diagnosis/symptom? @ -encounter for drug screen Acute, or Chronic, or Acute on Chronic? @ -Acute Uncomplicated (without systemic symptoms) or Complicated (systemic symptoms)? @ -uncomplicated Side effects of treatment? @ -No Exacerbation, Progression, or Severe Exacerbation? @ -No Poses a threat to life or bodily function? How? (Chest pain, USA, NV, pneumonia, PE, COPD, DKA, ARF, appy, cholecystitis, CVA, Diverticulitis, Homicidal, Suicidal, threat to staff... and all critical care pts) @ -No Disposition Clinical Impression: Encounter for drug screening Disposition: HOME SELF-CARE Condition: Good Additional Instructions: Return to the emergency department for any new or worsening symptoms. Is patient prescribed a controlled substance at d/c from ED?: No Referrals: Zander Wiggins MD [Primary Care Provider] - 1-2 days Time of Disposition: 19:43
[2024-07-25 19:18] VITALS: RESP 18
[2024-07-25 21:10] VITALS: BP 122/71; PULSE 82; TEMP 97.9
== END 2024-07-25 20:02 | disposition home or self-care (01) ==
LOC: EC 18:58
DX: R79.9 Abnormal finding of blood chemistry, unspecified
CPT/HCPCS: 99282

== ENCOUNTER 2024-12-14 15:49 | Emergency (ER) | payer OTHER ==
--- NOTE | 2024-12-14 16:19 | ED ---
General Adult HPI - General Chief complaint: Back Pain/Injury Stated complaint: Fall-back injury Time Seen by Provider: 12/14/24 16:01 Source: patient, RN notes reviewed Mode of arrival: wheelchair Limitations: no limitations - History of Present Illness Initial comments: This is a 49-year-old female presenting to the emergency department for complaint of sacral, coccyx, and mild hip pain after a fall that occurred 3 hours ago. Patient states that she was walking outside to take her dog to use the bathroom when she slipped down the last 4 steps from her house onto the sidewalk. Patient denies hitting her head or loss conscious time of the injury. States that she has most pain at her "tailbone" and mildly in her pelvis. She denies other injuries at the time of the fall. She denies loss of bowel continence, saddle anesthesias, radiation of pain. Denies previous surgeries of her spine. States that she is taken and Tylenol Extra Strength Tylenol prior to arrival. - Related Data Home Medications Medication Instructions Recorded Confirmed Atorvastatin [Lipitor] 20 mg PO DAILY 12/05/19 12/05/19 Cyclobenzaprine HCl 10 mg PO BID 12/05/19 12/05/19 Ergocalciferol [Vitamin D2] 50,000 unit PO Q7D 12/05/19 12/05/19 Levothyroxine Sodium [Synthroid] 88 mcg PO DAILY 12/05/19 12/05/19 QUEtiapine [SEROquel] 100 mg PO HS 12/05/19 12/05/19 oxyBUTYnin chloride [Ditropan] 10 mg PO BID 12/05/19 12/05/19 Previous Rx's Medication Instructions Recorded Benztropine Mesylate [Cogentin] 0.5 mg PO BID #60 tab 12/11/19 FLUoxetine HCL [PROzac] 20 mg PO DAILY #30 cap 12/11/19 Nicotine 14Mg/24Hr Patch [Habitrol] 1 patch TRANSDERM DAILY #14 patch 12/11/19 QUEtiapine [SEROquel] 25 mg PO TID PRN #90 tab 12/11/19 QUEtiapine [SEROquel] 100 mg PO HS #30 tab 12/11/19 Gabapentin [Neurontin] 400 mg PO QID 30 Days #120 cap 12/13/19 Allergies Allergy/AdvReac Type Severity Reaction Status Date / Time No Known Allergies Allergy Verified 12/14/24 15:53 Review of Systems ROS Statement: Those systems with pertinent positive or pertinent negative responses have been documented in the HPI. ROS Other: All systems not noted in ROS Statement are negative. Past Medical History Past Medical History: Hyperlipidemia, Thyroid Disorder Additional Past Medical History / Comment(s): back problems History of Any Multi-Drug Resistant Organisms: None Reported Past Surgical History: Section Past Psychological History: Anxiety, Depression Smoking Status: Current every day smoker Past Alcohol Use History: None Reported Past Drug Use History: Marijuana General Exam Limitations: no limitations General appearance: alert, in no apparent distress Neck exam: Present: normal inspection. Absent: tenderness, meningismus, lymphadenopathy Respiratory exam: Present: normal lung sounds bilaterally. Absent: respiratory distress, wheezes, rales, rhonchi, stridor Cardiovascular Exam: Present: regular rate, normal rhythm, normal heart sounds. Absent: systolic murmur, diastolic murmur, rubs, gallop, clicks GI/Abdominal exam: Present: soft, normal bowel sounds. Absent: distended, tenderness, guarding, rebound, rigid Extremities exam: Present: normal inspection, full ROM, normal capillary refill. Absent: tenderness, pedal edema, joint swelling, calf tenderness Back exam: Present: tenderness (sacrum). Absent: CVA tenderness (R), CVA te nderness (L), muscle spasm Neurological exam: Present: alert, oriented X3, CN II-XII intact Course Vital Signs 12/14/24 15:56 Temperature 97.6 F Pulse Rate 67 Respiratory 18 Rate Blood Pressure 119/58 O2 Sat by Pulse 100 Oximetry Medical Decision Making - Medical Decision Making Was pt. sent in by a medical professional or institution (, PA, MISSION MANAGER, urgent care, hospital, or senior care...) When possible be specific @ -No Did you speak to anyone other than the patient for history (EMS, parent, family, police, friend...)? What history was obtained from this source @ -No Did you review nursing and triage notes (agree or disagree)? Why? @ -I reviewed and agree with nursing and triage notes Were old charts reviewed (outside hosp., previous admission, EMS record, old EKG, old radiological studies, urgent care reports/EKG's, senior care records)? Report findings @ -No old charts were reviewed Differential Diagnosis (chest pain, altered mental status, abdominal pain women, abdominal pain men, vaginal bleeding, weakness, fever, dyspnea, syncope, headache, dizziness, GI bleed, back pain, seizure, CVA, palpatations, mental health, musculoskeletal)? @ -Differential Back Pain: Strain, zoster, cauda equina syndrome, epidural abscess, vertebral osteomyelitis, discitis, fracture, subluxation, disc herniation, DJD, spinal stenosis, dissection, AAA, pancreatitis, peptic ulcer disease, pyelonephritis, kidney stone, this is not meant to be an all-inclusive list. EKG interpreted by me (3pts min.). @ -None X-rays interpreted by me (1pt min.). @ -X-ray of the sacrum and coccyx subtle lucency and angulation of the distal sacrum recommend correlation of the distal fracture of the sacrum. X-ray of the pelvis no acute process. CT interpreted by me (1pt min.). @ -None done U/S interpreted by me (1pt. min.). @ -None done What testing was considered but not performed or refused? (CT, X-rays, U/S, labs)? Why? @ -None What meds were considered but not given or refused? Why? @ -None Did you discuss the management of the patient with other professionals (professionals i.e. , PA, MISSION MANAGER, lab, RT, psych nurse, social work therapist, rubber engraver, teacher, special forces officer, cyanide case hardener)? Give summary @ -No Was smoking cessation discussed for >3mins.? @ -No Was critical care preformed (if so, how long)? @ -No Were there social determinants of health that impacted care today? How? (Homelessness, low income, unemployed, alcoholism, drug addiction, transportation, low edu. Level, literacy, decrease access to med. care, long-term, rehab)? @ -No Was there de-escalation of care discussed even if they declined (Discuss DNR or withdrawal of care, Hospice)? DNR status @ -No What co-morbidities impacted this encounter? (DM, HTN, Smoking, COPD, CAD, Cancer, CVA, ARF, Chemo, Hep., AIDS, mental health diagnosis, sleep apnea, morbid obesity)? @ -None Was patient admitted / discharged? Hospital course, mention meds given and route, prescriptions, significant lab abnormalities, going to OR and other pertinent info. @ -Discharge. 49-year-old male presenting with tailbone pain after fall. Patient is not exhibiting red flag symptoms concerning for cauda equina. She is neurovascularly intact of bilateral lower extremities. She has point tenderness over the sacrum with no overlying skin changes or ecchymosis. She is provided with pain medication. X-ray possible distal sacral fracture. Patient is provided with instructions for supportive treatment. She is provided with early childhood education specialist on discharge paperwork for follow-up if necessary. All questions have been answered at bedside strict return parameters have discussed with the patient she is verbalized understanding. Case discussed with Dr. Ruth Undiagnosed new problem with uncertain prognosis? @ -No Drug Therapy requiring intensive monitoring for toxicity (Heparin, Nitro, Insulin, Cardizem)? @ -No Were any procedures done? @ -No Diagnosis/symptom? @ -Sacral fracture Acute, or Chronic, or Acute on Chronic? @ -Acute Uncomplicated (without systemic symptoms) or Complicated (systemic symptoms)? @ -Uncomplicated Side effects of treatment? @ -No Exacerbation, Progression, or Severe Exacerbation? @ -No Poses a threat to life or bodily function? How? (Chest pain, USA, DC, pneumonia, PE, COPD, DKA, ARF, appy, cholecystitis, CVA, Diverticulitis, Homicidal, Suicidal, threat to staff... and all critical care pts) @ -No Disposition Clinical Impression: Fracture of sacrum, Tailbone injury Disposition: HOME SELF-CARE Condition: Good Instructions (If sedation given, give patient instructions): Sacral Fracture (ED) Additional Instructions: Please return to the Emergency Department if symptoms worsen or any other concerns. Is patient prescribed a controlled substance at d/c from ED?: No Referrals: Zander Wiggins MD [Primary Care Provider] - 1-2 days Vik Pradhan MD [STAFF PHYSICIAN] - 1-2 days Time of Disposition: 17:00
[2024-12-14] MEDS: MORPHINE SULFATE 2 MG/ML SYRINGE IM ONE (16:22)
--- NOTE | 2024-12-14 16:45 | XR ---
EXAMINATION TYPE: XR pelvis AP view DATE OF EXAM: 12/14/2024 4:36 PM COMPARISON: None. CLINICAL INDICATION: Female, 49 years old with history of slip on stairs, fall, pain, pain TECHNIQUE: AP view(s) obtained. FINDINGS: Sacroiliac joints and symphysis pubis are normal. Femoral heads are clear with the acetabulum. No acu te fractures are evident. Normal bowel gas is present IMPRESSION: 1. Unremarkable AP pelvis [facility], Workstation: [facility], 12/14/2024 4:42 PM
--- NOTE | 2024-12-14 16:48 | XR ---
EXAMINATION TYPE: XR sacrum coccyx DATE OF EXAM: 12/14/2024 4:36 PM COMPARISON: None. CLINICAL INDICATION: Female, 49 years old with history of slip on stairs, fall, pain, pain TECHNIQUE: 3 view(s) obtained. FINDINGS: Sacroiliac joints are patent. Sacrum appears intact. In the lateral projection there is subtle lucency and angulation of the distal sacrum. Correlate with location of the patient's pain. Fracture is not entirely excluded at this level. This is not identif ied in the AP projections. IMPRESSION: 1. Correlate for distal sacral fracture tenderness. 2. Remainder of the sacrum and coccyx appear without suspicious areas for fracture. [facility], Workstation: [facility], 12/14/2024 4:46 PM
[2024-12-14] MEDS: ACET/COD 300 MG/30 MG STARTER PACK 6 TAB BTL PO STA (17:21)
[2024-12-14 17:24] VITALS: BP 122/62; PULSE 68; RESP 20; TEMP 97.8
== END 2024-12-14 18:19 | disposition home or self-care (01) ==
LOC: EC 15:49
DX: S32.10XA Unspecified fracture of sacrum, initial encounter for closed fracture (principal); S39.92XA Unspecified injury of lower back, initial encounter; F17.200 Nicotine dependence, unspecified, uncomplicated; W10.9XXA Fall (on) (from) unspecified stairs and steps, initial encounter; Y93.01 Activity, walking, marching and hiking
CPT/HCPCS: 72170; 72220; 99283; 96372; J2270